=== PATIENT | female | born 1995 | race Caucasian/White ===

== ENCOUNTER 2019-05-27 14:15 | Emergency (ER) | payer OTHER, SELFPAY ==
[2019-05-27 14:26] VITALS: BP 124/85; PULSE 107; RESP 20; TEMP 38.1; O2SAT 100
--- NOTE | 2019-05-27 15:00 | ED.URI ---
HPI - URI/Sore Throat General Chief Complaint: Upper Respiratory Infection Stated Complaint: congestion/ear pain/christopher/sinus issues Source: patient and RN notes reviewed Mode of arrival: ambulatory Limitations: no limitations History of Present Illness HPI Narrative: The patient, a non-smoker/nondrinker, presents with 5d history of fever to 100.6, congestion, cough now associated with bilateral right> left ear discomfort. No wheeze, sore throat --symptoms mild worse upon awakening; unrelieved with OTC preparations like Nyquil. Related Data Allergies Allergy/AdvReac Type Severity Reaction Status Date / Time No Known Allergies Allergy Verified 01/24/19 12:52 Review of Systems Review of Systems: Narrative: General/Constitutional: No weight loss, REPORTS fever Eyes: N0: Redness,discharge Ears/Nose/Throat: No: Epistaxis,ear discharge Respiratory: Denies: Hemoptysis Gastrointestinal: No Vomiting, Bleeding-rectal Skin: No Lumps, eruption Neurologic: No Focal Weakness,Sz Hematologic: Denies: Petechiae/Purpura Psychiatric: No: Suicida ideationl All Other Systems: Reviewed and Negative PMFSH Social History Social History Smoking status: Never smoker Alcohol intake: never Comments At time of signature, agree with nursing past medical, surgical, social and family history. There is no relevant family history pertinent to the presenting complaint Exam Narrative: Exam Narrative: General Appearance: Well appearing, Well nourished EYE: PERRLA, Conjunctiva clear Ears: Auditory canal normal, TM normal Nose: Rhinorrhea, Mucousal erythema Mouth/Throat: MM moist, Uvula midline, Pharyngeal erythema Neck: Supple, No adenopathy Respiratory: No respiratory distress, Breath sounds equal, Clear to auscultation Cardiovascular: RRR, No JVD Musculoskeletal: Non tender, Normal strength Skin: Warm, Dry Neurological: A&O x3, CN II-XII intact Psychiatric: Normal mood, Normal affect Course Vital Signs Vital signs: Vital Signs Temperature 100.5 F H 05/27/19 14:26 Pulse Rate 107 H 05/27/19 14: Respiratory Rate 20 05/27/19 14: Blood Pressure 124/85 05/27/19 14:26 Pulse Oximetry 100 05/27/19 14: Temperature 100.5 F H 05/27/19 14:26 Pulse Rate 107 H 05/27/19 14:26 Respiratory Rate 20 05/27/19 14:26 Blood Pressure 124/85 05/27/19 14:26 Pulse Oximetry 100 05/27/19 14:26 Discharge Plan Discharge Clinical Impression: Bilateral otitis media Qualifiers: Otitis media type: suppurative Chronicity: acute Recurrence: non-recurrent Spontaneous tympanic membrane rupture: without spontaneous rupture Qualified Code(s): H66.003 - Acute suppurative otitis media without spontaneous rupture of ear drum, bilateral Fever Qualifiers: Fever type: unspecified Qualified Code(s): R50.9 - Fever, unspecified Patient Disposition: Home, Self-Care Condition: Stable Instructions: Antibiotic Form, Ear Infection (ED) Prescriptions: New amoxicillin-pot clavulanate [Augmentin] 500-125 mg tablet 1 tablet PO TID Qty: 30 RF: 0 codeine-guaifenesin 10-100 mg/5 mL liquid 7.5 ml PO Q6H PRN (Reason: cough) Qty: 118 RF: 0 benzonatate [Tessalon Perles] 100 mg capsule 100 mg PO TID Qty: 20 RF: 1 Interventions: Discharge Disposition Last Done: 05/27/19 14:42 Follow-up/Referrals: Abran Goff MD [Primary Care Provider] - Stand Alone Forms: Work/School Release IP Discharge Date/Time: 05/27/19 14:42
== END 2019-05-27 14:42 | disposition home or self-care (01) ==
PROVIDERS: Emergency Provider Emergency Medicine; PCP Family Medicine
DX: H66.003 Acute suppurative otitis media without spontaneous rupture of ear drum, bilateral (principal); R50.9 Fever, unspecified
CPT/HCPCS: 99213; G0463

== ENCOUNTER 2021-01-18 09:53 | Outpatient (CLI) | payer BC, SELFPAY ==
[2021-01-18 11:44] LABS: Hematocrit 42.8 % (37.0-47.0); Hemoglobin 14.5 g/dL (12.0-15.0); Mean Corpuscular HGB Conc 33.9 g/dl (32-36); Mean Corpuscular Hemoglobin 30.1 pg (26-34); Mean Platelet Volume 10.1 fl (7.4-10.4); Platelet Count Result 266 k/mm3 (150-375); Red Blood Count 4.81 M/mm3 (4.2-5.4); Red Cell Distribution Width 12.5 % (11.5-14.5); White Blood Count 8.1 K/mm3 (4.5-10.0)
[2021-01-18 12:19] LABS: Glucose 1 Hour PP 50gm Dose 140 mg/dL
[2021-01-18 12:52] LABS: Hepatitis B Surface Antigen Negative (Negative); Rubella IgG Antibody 36.3 IU/ML
[2021-01-18 13:03] LABS: HIV 1/2 Ab P24 Ag Result Negative (Negative)
[2021-01-19 09:34] LABS: Rapid Plasma Reagin Non-Reactive (NonReactive)
[2021-01-21 18:46] LABS: CMV IgG Antibody >10.00 U/mL (<0.60)
== END 2021-01-18 09:54 | disposition home or self-care (01) ==
LOC: ANHLAB 09:58
PROVIDERS: PCP Family Medicine; Visit Provider Obstetrics & Gynecology
DX: N92.6 Irregular menstruation, unspecified (principal)
CPT/HCPCS: 36415; 82947; 84702; 85027; 86592; 86644; 86703; 86747; 86762; 86787; 86850; 86900; 86901; 87086; 87088; 87340; G0432

== ENCOUNTER 2021-02-21 07:10 | Outpatient (CLI) | payer BC, SELFPAY ==
[2021-02-21 08:07] LABS: Glucose Fasting Gestational 97 mg/dL (>/=95)
[2021-02-21 09:46] LABS: Glucose 1 Hour Gest 158 mg/dL (>/=180)
[2021-02-21 10:41] LABS: Glucose 2 Hour Gest 117 mg/dL (>/= 155)
[2021-02-21 11:50] LABS: Glucose 3 Hour Gest 100 mg/dL (>/=140)
== END 2021-02-21 07:11 | disposition home or self-care (01) ==
PROVIDERS: PCP Family Medicine; Visit Provider Obstetrics & Gynecology
DX: R73.09 Other abnormal glucose (principal)
CPT/HCPCS: 36415; 82951; 82952

== ENCOUNTER 2021-07-01 07:36 | Outpatient (CLI) | payer BC, SELFPAY ==
[2021-07-01 08:51] LABS: Basophils Percent Auto 0.3 % (0.2-1.2); Eosinophils Absolute Auto 0.1 K/mm3 (0-0.3); Eosinophils Percent Auto 0.5 % (0-4.4); Hematocrit 40.6 % (37.0-47.0); Hemoglobin 12.9 g/dL (12.0-15.0); Immature Granulocyte Absolute 0.13 K/mm3 (0.00-0.031); Immature Granulocyte Percent A 1.2 % (0-0.5); Lymphocytes Absolute Auto 2.23 K/mm3 (0.9-3.2); Lymphocytes Percent Auto 20.9 % (18.3-44.2); Mean Corpuscular HGB Conc 31.8 g/dl (32-36); Mean Corpuscular Hemoglobin 28.4 pg (26-34); Mean Corpuscular Volume 89.2 fl (80-100); Mean Platelet Volume 11.4 fl (7.4-10.4); Monocytes Absolute Auto 0.4 K/mm3 (0.1-0.6); Monocytes Percent Auto 3.7 % (2.6-8.5); Neutrophils Absolute Auto 7.8 K/mm3 (1.3-6.7); Neutrophils Percent Auto 73.4 % (45.5-73.1); Platelet Count Result 181 k/mm3 (150-375); Red Blood Count 4.55 M/mm3 (4.2-5.4); White Blood Count 10.7 K/mm3 (4.5-10.0)
[2021-07-01 09:02] LABS: Glucose 1 Hour PP 50gm Dose 163 mg/dL
[2021-07-01 09:41] LABS: HIV 1/2 Ab P24 Ag Result Negative (Negative)
== END 2021-07-01 07:37 | disposition home or self-care (01) ==
LOC: ANHLAB 07:37
PROVIDERS: PCP Family Medicine; Visit Provider Obstetrics & Gynecology
DX: Z34.90 Encounter for supervision of normal pregnancy, unspecified, unspecified trimester (principal); Z3A.00 Weeks of gestation of pregnancy not specified
CPT/HCPCS: 36415; 82947; 85025; 86703; G0432

== ENCOUNTER 2021-07-11 07:16 | Outpatient (CLI) | payer BC, SELFPAY ==
[2021-07-11 07:50] LABS: Glucose Fasting Gestational 89 mg/dL (>/=95)
[2021-07-11 09:34] LABS: Glucose 1 Hour Gest 150 mg/dL (>/=180)
[2021-07-11 10:59] LABS: Glucose 2 Hour Gest 161 mg/dL (>/= 155)
[2021-07-11 11:07] LABS: Glucose 3 Hour Gest 121 mg/dL (>/=140)
== END 2021-07-11 07:17 | disposition home or self-care (01) ==
LOC: ANHLAB 07:17
PROVIDERS: PCP Family Medicine; Visit Provider Obstetrics & Gynecology
DX: Z34.93 Encounter for supervision of normal pregnancy, unspecified, third trimester (principal); Z3A.00 Weeks of gestation of pregnancy not specified
CPT/HCPCS: 36415; 82951; 82952

== ENCOUNTER 2021-09-06 04:46 | Inpatient (IN) | payer BC, SELFPAY ==
[2021-09-06] VITALS (38 sets, daily range): BP systolic 101–169; BP diastolic 66–137; PULSE 80–176; RESP 16–20; TEMP 36.4–37.2; O2SAT 96–100; BMI 44.9
--- NOTE | 2021-09-06 04:46 | LDADM ---
This patient, Anabella Cantor, was admitted to Labor/Delivery/Recovery 107 on 09/06/21 at 04:46. Plans for labor, pain management and were discussed with patient. Patient/family oriented to hospital policies and general routines including ID bracelet, bed and alarms, visiting hours, pain management, procedures, bathroom and other care routines, personal items, smoking policy, room service/diet and guest tray routines, security routines, and visiting hours. Patient/Family are encouraged to report perceived risks to care and to ask questions if they do not understand what they are told or what they should do. See OBIX for further documentation.
[2021-09-06] MEDS: LACTATED RINGERS 1,000 ML 125 ML IV CONT ×2 (05:05→05:33)
[2021-09-06 05:06] LABS: Basophils Percent Auto 0.3 % (0.2-1.2); Eosinophils Absolute Auto 0.1 K/mm3 (0-0.3); Eosinophils Percent Auto 0.7 % (0-4.4); Hematocrit 39.2 % (37.0-47.0); Hemoglobin 12.8 g/dL (12.0-15.0); Immature Granulocyte Absolute 0.12 K/mm3 (0.00-0.031); Immature Granulocyte Percent A 0.8 % (0-0.5); Lymphocytes Absolute Auto 4.48 K/mm3 (0.9-3.2); Lymphocytes Percent Auto 31.5 % (18.3-44.2); Mean Corpuscular HGB Conc 32.7 g/dl (32-36); Mean Corpuscular Hemoglobin 27.8 pg (26-34); Mean Corpuscular Volume 85.2 fl (80-100); Mean Platelet Volume 11.5 fl (7.4-10.4); Monocytes Absolute Auto 0.7 K/mm3 (0.1-0.6); Monocytes Percent Auto 4.6 % (2.6-8.5); Neutrophils Absolute Auto 8.8 K/mm3 (1.3-6.7); Neutrophils Percent Auto 62.1 % (45.5-73.1); Platelet Count Result 176 k/mm3 (150-375); Red Cell Distribution Width 15.3 % (11.5-14.5); White Blood Count 14.2 K/mm3 (4.5-10.0)
--- NOTE | 2021-09-06 05:22 | WPDANESEPP ---
Anes - Eval Pre Procedure Procedure: labor epidural Date/Time: 09/06/21 05:22 Surgeon: ross Pre Op Diagnosis: Labor Patient Data Age: 25 Gender: F Height: 1.6 m Weight: 115 kg Last Vital Signs Temp 36.9 C 09/06/21 05:16 Pulse 109 H 09/06/21 05:19 BP 111/69 09/06/21 05:19 O2 Del Method Room Air 09/06/21 05:07 Allergies Allergy/AdvReac Type Severity Reaction Status Date / Time No Known Allergies Allergy Verified 09/05/21 14:29 Home Medications Medication Instructions Recorded Confirmed Type vitamins-iron fumarate 65 1 tablet PO DAILY 05/05/21 09/05/21 History mg iron-folic acid 1 mg tablet Al hyd-Mg tr-alg ac-sod bicarb 80 1 tablet PO DAILY 06/30/21 09/05/21 History mg-14.2 mg chewable tablet (Gaviscon) Laboratory Tests 09/06/21 09/06/21 05:01 05:01 WBC 14.2 K/mm3 H K/mm3 (4.5-10.0) RBC 4.60 M/mm3 M/mm3 (4.2-5.4) Hgb 12.8 g/dL g/dL (12.0-15.0) Hct 39.2 % % (37.0-47.0) MCV 85.2 fl fl (80-100) MCH 27.8 pg pg (26-34) MCHC 32.7 g/dl g/dl (32-36) RDW 15.3 % H % (11.5-14.5) Plt Count 176 k/mm3 k/mm3 (150-375) MPV 11.5 fl H fl (7.4-10.4) Immature Gran % (Auto) 0.8 % H % (0-0.5) Neut % (Auto) 62.1 % % (45.5-73.1) Lymph % (Auto) 31.5 % % (18.3-44.2) [place] % (Auto) 4.6 % % (2.6-8.5) Eos % (Auto) 0.7 % % (0-4.4) Baso % (Auto) 0.3 % % (0.2-1.2) Lymph # (Auto) 4.48 K/mm3 H K/mm3 (0.9-3.2) [place] # (Auto) 0.7 K/mm3 H K/mm3 (0.1-0.6) Eos # (Auto) 0.1 K/mm3 K/mm3 (0-0.3) Baso # (Auto) 0.0 K/mm3 K/mm3 (0.0-0.1) Abs Immat Gran (auto) 0.12 K/mm3 H K/mm3 (0.00-0.031) Absolute Neuts (auto) 8.8 K/mm3 H K/mm3 (1.3-6.7) Absolute Nucleated RBC 0.0 K/mm3 K/mm3 (0.0-0.012) Nucleated RBC % 0.0 % % (0.0-0.2) RPR Pending Patient hx anesthesia problems: none Family hx anesthesia problems: none Results Review: All pre-operative results and documents have been reviewed as part of the pre-operative evaluation. [facility] Surgical History Surgical History History of gynecological procedure (06/09/20) mirena iud removal History of gynecological procedure (03/19/16) mirena iud insertion Family History Family History Grandparent Family history of elevated blood lipids Family history of alcoholism Family history of lung cancer Social History Social History Smoking status: Former smoker Alcohol intake: never Substance use: never Additional living arrangements comments: spouse Gender identity (if verbalized by the patient): Female Sexual Orientation (if Verbalized by the Patient): Straight or Heterosexual Spiritual care concerns: No Exam Day of Procedure 09/06/21 05:22
[2021-09-06] MEDS: OXYTOCIN 30 UNITS/NS 500 ML 30 UNITS/500 ML BAG 999 UNITS IV CONT (06:17)
[2021-09-06] MEDS: LIDOCAINE HCL 1% LOCAL INJ 10 ML VIAL ×2 (06:22)
--- NOTE | 2021-09-06 06:37 | WPDHPUPDATE1 ---
History and Physical Update Update Date/Time: 09/06/21 06:37 History and Physical has been reviewed, including an updated exam of the patient. There are NO changes in the patient's condition. Risks, benefits, and alternatives have been discussed and questions answered. Patient agrees to proceed with procedure.
--- NOTE | 2021-09-06 06:37 | WPDOBADMIT ---
Obstetrics - Admit Note Admission Note: record reviewed. No pertinent additions to the history and/or any subsequent changes in the physical findings that are not consistent with the expected course of the were found. Additions to the history and/or subsequent changes in the physical findings follow. None.
--- NOTE | 2021-09-06 06:38 | PM.OBPRVD ---
OB - Delivery Note Procedure Intrapartal Events: Other ( Meconium-stained fluid) Induction method: None Delivery monitor: External FHT and External Uterine Route of delivery: Episiotomy description: None Laceration Description: Perineal - 2nd Degree Delivery repair: chromic Specimen: Yes Quantitative Blood Loss (ml): 200 Anesthesia type: Epidural ( local for laceration repair) Disposition: Floor Complications: none Narrative: patient prepped in usual manner for this procedure. Maternal expulsive efforts readily delivered vertex with a nuchal cord reduced at delivery. Rest of baby was delivered cord clamped cut placenta delivered spontaneously. Cervix vagina vulva were inspected with second-degree laceration. Local anesthesia to the area due to discomfort. 2-0 chromic was used to approximate the vaginal tissue in a running interlocking manner and then the deep tissue was approximated in subcuticular on the perineum. This point the procedure was considered terminated with immediate postoperative condition mother baby of good. Baby Weeks of gestation at delivery: 40 gender: Male Weight (pounds): 8 Weight (ounces): 5 presentation: vertex Placenta delivery description: Spontaneous score one minute: 8 score five minutes: 9 AMG Delivery Billing Delivery Delivery: Delivery Charge
[2021-09-06] MEDS: OXYTOCIN 30 UNITS/NS 500 ML 30 UNITS/500 ML BAG 125 UNITS IV CONT (06:48)
--- NOTE | 2021-09-06 09:06 | OBPPTRN ---
Patient transferred to post room #283 via wheelchair. Support person present. Oriented to unit, room, information board, rooming in, admission packet and security measures. Patient verbalizes understanding.
[2021-09-06] MEDS: IBUPROFEN 600 MG TABLET PO ×2 (09:21→22:56)
[2021-09-06] MEDS: MULTIVIT/MIN/PREN/FOL AC/IRON TABLET 1 TAB PO (09:21)
[2021-09-06] MEDS: DOCUSATE SODIUM 100 MG CAPSULE PO (09:21)
--- NOTE | 2021-09-06 15:18 | PC.NURSE ---
1507 - Mother verbalizes she is able to independently latch with appropriate positioning/alignment. She denies any nipple discomfort and is responsively . Infant is currently meeting outcomes for weight, output, jaundice and feeding frequencies of 8-12 times in 24 hours. Mother declines any additional assistance/education at this time. Mother is encouraged to call for assistance if her doesn?t latch or there is discomfort with latching. Mother voiced understanding of information shared and mom and baby guide reviewed for additional resource information .
[2021-09-06 17:16] LABS: Rapid Plasma Reagin Non-Reactive (NonReactive)
[2021-09-06] MEDS: ACETAMINOPHEN 325 MG TABLET 650 MG PO (22:57)
[2021-09-07] VITALS: BP 121/77; PULSE 101; RESP 18; TEMP 36.8
[2021-09-07 04:00] VITALS: BP 122/84; PULSE 84; RESP 18; TEMP 36.7
[2021-09-07 05:03] LABS: Hematocrit 35.4 % (37.0-47.0); Hemoglobin 11.6 g/dL (12.0-15.0)
--- NOTE | 2021-09-07 07:29 | WPDANLDPN2 ---
Anes-Prog Note L&D Date/Time: 09/07/21 07:29 Comfortable throughout: labor and delivery Neuraxial method: epidural Epidural/Spinal procedure site: clean & non-tender Neuro status: Neuro function grossly intact. Cardiovascular status: normal Respiratory status: normal Airway patency: baseline Mental status: baseline Post-Op hydration status: normal Vital Signs: Last Vital Signs Temp 36.7 C 09/07/21 04:00 Pulse 84 09/07/21 04:00 Resp 18 09/07/21 04:00 BP 122/84 09/07/21 04:00 Pulse Ox 98 09/06/21 16:00 O2 Del Method Room Air 09/07/21 04:00 Pain score (VAS): 03/28 I/O: Intake & Output 09/06/21 09/06/21 09/07/21 15:59 23:59 07:59 Intake Total 340 240 Output Total 100 Balance 240 240 Post-procedural complaints: none Patient feedback: Patient satisfied with anesthetic care.
--- NOTE | 2021-09-07 08:19 | PC.NURSE ---
[id number] Consulted with patient to assess needs related to . Mother led conversation with her experience with feeding baby so far and states last night she had difficulty latching to the right breast. Mother works well with her with encouragement. Reviewed working with , breast, nipples and how to protect the nipples with an optimal deep latch, good positioning, and good hand washing. Encouraged understanding the benefits of skin to skin, responding to feeding cues, frequencies of feeding 8-12 times in 24 hours (approximately 2-3 hours), duration of feedings, milk production, intake/output feeding sheet and signs of adequate intake encouraging swallowing at the breast. Reviewed positioning and alignment, supporting breast, off-centered (asymmetrical latch) and leading with the chin with big open wide gape. Infant latched optimally to the right breast in football position after demonstrating bringing to nipple level well supported. Education given to mother of how to visualize suck/swallow ratios and drinking at the breast. was able to maintain latch without discomfort to mother. Nipple care reviewed with optimal latch and good positioning, comfort, healing with warm, wet washcloth to rinse breast, then leave open to air-dry, colostrum may be left on nipples to dry but have clean hands when touching the nipple/breast as needed. Resources used to facilitate learning were used from the mom and baby guide. Mother stated she had no difficulty latching to the left breast. Mother is feeding appropriately for growth of infant and understands stimulating to eat if needed. has had adequate feedings in the last 24 hours meets the outcomes for weight, output and jaundice at this time. Mother states she is confident to continue effectively her infant at home or when to call for assistance and denies any additional assistance or education at this time. Reinforced understanding of milk production, transition of milk, signs of adequate intake, prevention/relief of engorgement, responsive after visualizing feeding cues, the different methods of stimulating to breastfeed 2-3 hours after the start of the last feeding, community resources, medication information reviewed per [employer] and when to call a provider using the resource of the mom and baby guide/[facility] website. Mother voiced understanding of the education shared. Reported to the primary RN.
[2021-09-07 08:30] VITALS: BP 118/76; PULSE 85; RESP 16; TEMP 36.4; O2SAT 99
[2021-09-07] MEDS: IBUPROFEN 600 MG TABLET PO (08:39)
[2021-09-07] MEDS: DOCUSATE SODIUM 100 MG CAPSULE PO (08:39)
[2021-09-07] MEDS: BENZOCAINE 20% AER SPR (*SP) 56 GM CAN 1 SPRAY TOPICAL (08:39)
[2021-09-07] MEDS: WITCH HAZEL 40 PADS 1 PAD TOPICAL (08:39)
[2021-09-07] MEDS: MULTIVIT/MIN/PREN/FOL AC/IRON TABLET 1 TAB PO (08:39)
--- NOTE | 2021-09-07 12:37 | PM.OBDSVD ---
DS: Admitting Diagnosis Discharge Date 09/07/2021 Admitting Diagnosis OB - DS: Summary OB Procedures : None OB Procedures Intrapartum: Spontaneous Vag Delivery OB Procedures: : None Time Spent with Patient Time attestation: Total time spent providing and/or coordinating discharge services: DS: Data Data Completed and Pending Pending studies at discharge: Pending at discharge 09/06/21 06:17 Surgical [PTH] Routine Labs on day of discharge: Labs from last 24 hours 09/07/21 09/06/21 04:33 05:01 Hgb 11.6 L Hct 35.4 L RPR Non-reactive Discharge Plan Discharge Discharging Clinician: Qasim Roldan Patient Disposition: Home, Self-Care Activity: as tolerated Diet: as tolerated Patient Instructions: Antibiotic Form Stand Alone Forms: General Discharge Information Follow-up/Referrals: Qasim Roldan MD [Physician] - 3 Weeks Discharge Medications: New ibuprofen 600 mg Tablet 600 mg PO Q6H PRN (Reason: Cramping) Qty: 30 0RF Continued Gaviscon 80-14.2 mg tablet,chewable 1 tablet PO DAILY vit-iron fum-folic ac 65 mg iron- 1 mg tablet 1 tablet PO DAILY Date of admission: 09/06/21 04:46 Primary Care Provider: Abran Goff Admitting Provider: Qasim Roldan Attending physician on admission: Qasim Roldan Condition: Stable
[2021-09-09 11:34] VITALS: BP 111/76; PULSE 108; RESP 20; TEMP 37; O2SAT 99
== END 2021-09-07 15:19 | disposition home or self-care (01) | DRG 807 ==
LOC: ANHLDR 05:10 → ANHOB2 09:10
PROVIDERS: Admitting Provider Obstetrics & Gynecology; PCP Family Medicine; Visit Provider Obstetrics & Gynecology
DX: O62.3 Precipitate labor (principal); Z37.0 Single live birth; Z3A.40 40 weeks gestation of pregnancy; O70.1 Second degree perineal laceration during delivery; O69.81X0 Labor and delivery complicated by cord around neck, without compression, not applicable or unspecified; O77.0 Labor and delivery complicated by meconium in amniotic fluid
CPT/HCPCS: 36415; 85014; 85018; 85025; 86592; 86850; 86900; 86901; 88307; A9270; J2590; J2795; J7120

== ENCOUNTER 2023-02-02 13:06 | Emergency (ER) | payer BC, SELFPAY ==
--- NOTE | ~2023-02-02 | XR_ITS ---
EXAMINATION: XR chest 2V DATE: 02/02/2023 13:43 INDICATION: Cough. Chest congestion. TECHNIQUE: Frontal and lateral views of the chest were obtained. COMPARISON: Chest 2 views 10/14/2018 FINDINGS: There is no pneumonia, pleural effusion, or pneumothorax. The heart size is normal. IMPRESSION: 1. No acute cardiopulmonary disease. Reviewed, dictated and finalized at location A. ELING CRANE OPERATOR
[2023-02-02 13:15] VITALS: BP 130/84; PULSE 85; RESP 18; TEMP 36.6; O2SAT 99
--- NOTE | 2023-02-02 13:30 | ED.URI ---
HPI - URI/Sore Throat General Chief Complaint: Upper Respiratory Infection Stated Complaint: Cough Time Seen by Provider: 02/02/23 13:30 Source: patient Mode of arrival: ambulatory Limitations: no limitations History of Present Illness HPI Narrative: 27 yo F presents with c/o cough for 2 wks. Began having SOB when going up flight of stairs and hearing crackles to lungs 3 days ago. Afebrile. Reports entire family got sick 2 wks ago and most symptoms resolved except for cough. All systems reviewed and negative except as noted above. Related Data Allergies Allergy/AdvReac Type Severity Reaction Status Date / Time No Known Allergies Allergy Verified 02/02/23 13:21 Review of Systems Review of Systems: CONSTITUTIONAL: Denies fever, chills, or sweats. EYES: Denies visual changes, redness, or discharge. ENT: Denies rhinorrhea, congestion, sore throat, or otalgia. CARDIOVASCULAR: Denies chest pain, palpitations, or edema. RESPIRATORY: Reports cough and dyspnea with exertion. GASTROINTESTINAL: Denies abdominal pain, nausea, vomiting, or diarrhea. GENITOURINARY: Denies dysuria or hematuria. SKIN: Denies rash or itching. MUSCULOSKELETAL: Denies back pain, joint pain, or myalgia. NEUROLOGIC: Denies headache, numbness, or weakness. PSYCHIATRIC: Denies anxiety or depression. All other systems reviewed are negative, except as documented in HPI. 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 [place] Surgical History Surgical History History of gynecological procedure (06/09/20) mirena iud removal History of gynecological procedure (03/19/16) mirena iud insertion Family History Family History Grandparent Family history of elevated blood lipids Family history of alcoholism Family history of lung cancer paternal grandmother Malignant neoplasm of skin maternal grandfather Other Breast cancer maternal aunt Social History Social History (Updated 12/27/22 @ 10:14 by LAWANDA Taylor) Smoking status: Former smoker Tobacco type: cigarettes Second hand tobacco smoke exposure: No Smoking end date: 12/18/15 Alcohol intake: current Alcohol use details: 2 a month Substance use: former Substance use type: does not use Other substance usage details: edibles before Living arrangements: other Additional living arrangements comments: spouse 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 There is no relevant family history pertinent to the presenting complaint. Exam Narrative: GENERAL: This is a well-nourished, well-developed patient, in no apparent distress. HEAD: normocephalic, atraumatic. EYES: PERRL. Sclera clear/white. Vision is grossly intact. EARS: External ears normal, auditory canals clear and without drainage, TMs normal without perforation. Hearing grossly intact. NOSE: External nose normal with clear nasal drainage, nares without redness, no rhinorrhea. THROAT: Mucous membranes moist, posterior pharynx clear. NECK: Neck supple, non-tender without lymphadenopathy, masses or thyromegaly. CARDIOVASCULAR: Regular rate and rhythm without murmurs, gallops, or rubs. RESPIRATORY: crackles noted to right lung wilhelm. Breath sounds equal bilaterally. No wheezes, rales, or rhonchi. SKIN: warm, Dry, intact with no suspicious lesions or rash, good texture and turgor. NEURO: awake, alert, and oriented to person, place and time. The
== END 2023-02-02 14:00 | disposition home or self-care (01) ==
PROVIDERS: Emergency Provider Nurse Practitioner Family; PCP Family Medicine
DX: J20.8 Acute bronchitis due to other specified organisms (principal); Z87.891 Personal history of nicotine dependence
CPT/HCPCS: 71046; 99213; G0463

== ENCOUNTER 2023-10-15 14:03 | Outpatient (CLI) | payer OTHER, SELFPAY ==
[2023-10-15 14:57] LABS: Anion Gap 10 mmol/L (4-12); Blood Urea Nitrogen 11 mg/dL (7-17); Calcium 9.5 mg/dL (8.4-10.2); Carbon Dioxide 24 mmol/L (22-30); Chloride 102 mmol/L (98-107); Estimated Glomerular Filt Rate > 60; Glucose 85 mg/dL (65-110); Potassium 4.2 mmol/L (3.4-5.0); Sodium 136 mmol/L (137-145)
== END 2023-10-15 14:04 | disposition home or self-care (01) ==
LOC: ANHLAB 14:04
PROVIDERS: PCP Family Medicine; Visit Provider Physician Assistant Medical
DX: R63.5 Abnormal weight gain (principal)
CPT/HCPCS: 36415; 80048; 84443

== ENCOUNTER 2024-09-23 11:42 | Outpatient (CLI) | payer OTHER, SELFPAY ==
--- NOTE | ~2024-09-23 | XR_ITS ---
3 VIEWS LUMBAR SPINE Ordering provider: Rigo Myers, [place] History: . low back pain . Comparison: None. FINDINGS: VERTEBRAL BODIES:Spondylolisthesis with spondylolysis at the level of L4-L5. No spondylolisthesis is slightly increased on the flexion position. Spondylolysis seen at the level of L3-4. No visible fracture. DISK SPACES: Narrowing of the disc L4-L5 and L5-S1. SOFT TISSUES: Normal. IMPRESSION: No acute osseous abnormality lumbar spine. Spondylolysis at the level of L3-L4 and L4-L5. Spondylolisthesis at the level of L4-L5 which is slightly increased with flexion movement Reviewed, dictated and finalized at location A. IMPRESSION: No acute osseous abnormality lumbar spine. Spondylolysis at the level of L3-L4 and L4-L5. Spondylolisthesis at the level of L4-L5 which is slightly increased with flexio n movement
== END 2024-09-23 11:43 | disposition home or self-care (01) ==
PROVIDERS: PCP Chiropractor; Visit Provider Chiropractor
DX: M47.896 Other spondylosis, lumbar region (principal)
CPT/HCPCS: 72114

== ENCOUNTER 2024-11-25 16:50 | Outpatient (CLI) | payer OTHER, SELFPAY ==
--- OUTSIDE RECORDS SUMMARY | 2024-11-24 10:00 | XMS_ITS | Continuity of Care Document ---
Author Organization [facility] Address [address] [place] [address] [place] [phone] Phone Care Team Providers Care Tariff Counsel Name Role Phone Gina PT, SIMRANT, Yoshi Unavailable Evonne vailable Procedures Procedure Date Therapeutic Activities Neuromuscular Re-Ed Therapeutic Exercise Dry Needling 1-2 muscles Therapeutic Activities Neuromuscular Re-Ed Therapeutic Exercise Dry Needling 1-2 muscles Therapeutic Activities Neuromuscular Re-Ed Therapeutic Exercise Therapeutic Activities Neuromuscular Re-Ed Therapeutic Exercise Therapeutic Activities Neuromuscular Re-Ed Therapeutic Exercise Therapeutic Activities Neuromuscular Re-Ed Therapeutic Exercise Therapeutic Activities Neuromuscular Re-Ed Therapeutic Exercise Therapeutic Activities Neuromuscular Re-Ed Therapeutic Exercise PT Evaluation Moderate Complexity Therapeutic Activities Neuromuscular Re-Ed Therapeutic Exercise Manual Therapy Hot or Cold Pack Advance Directives Directive Yes / No Effective Date File Name No Information Encounters Encounter Description Practice Location Reason(s) For Visit Diagnoses Date Provider Providers Copied on Encounter [facility], [address], [place], [place], [id number], [place] tel:[phone] [facility] No Information Baldemar Belle. [address] [facility], [address], [place], [place], [facility], [place]. tel: [phone] Referring Provider: Abran Goff, [address] [place], [address]. tel:[phone] [place] [address], [address] [facility], [place], [place], [id number], [place] tel:[phone] [facility] No Information Renaldo Andrew. . Referring Provider: Abran Goff, [address] [place], [address]. tel:[phone] [place] [address] [address] [address], [place], [place], [id number], [place] tel:[phone] [facility] No Information Renaldo Andrew. . Referring Provider: Abran Goff, [address] [place], [address]. tel:[phone] [place], [place] [id number] [address] [address], [place], [place], [id number], [place] tel:[phone] [facility] No Information Marina Lawler. . Referring Provider: Abran Goff, [address] [place], [address]. tel:[phone] [place] [address], [address] [facility] [facility], [place], [place], [id number], [place] tel:[phone] [place] No Information Marina Warrenberly. . Referring Provider: Abran Goff, [address] [place], [address]. tel:[phone] [place], [place] [id number] [address] [facility] [address], [place], [place], [id number], [place] tel:[phone] [place] No Information Lurtz Nuris. . Referring Provider: Abran Goff, [place], [address]. tel:[phone], [id number], tel:[phone] [place] No Information Lurtz Nuris. . Referring Provider: Abran Goff, [address] [place], [address]. tel:[phone], [id number], tel:[phone] [facility] No Information Lurtz Nuris. . Referring Provider: [place], [address]. tel:[phone], [id number], tel:[phone] [facility] No Information Lurtz Nuris. . Referring Provider: Abran Goff, [place], [address]. tel:[phone] [address] [place] [address], [id number], tel:[phone] [facility] No Information Baldemar Belle. [address] [facility], [address], [place], [address], [place]. tel: [phone] Referring Provider: [place], [address]. tel:[phone] Family History Family Member Type Diagnosis Age At Onset No Information Payers Payer name Insurance type Covered constitution party ID Laura carrizales(s) [facility] [id number] Social History Type Description Quantity Date Captured Comments Sex Female Smoking Status No Information Chief Complaint And Reason For Visit No Information Reason For Referral Reason For Referral No Information Plan Of Treatment Date Type Action Status Appointment Anabella Cantor Copay $20 [place] JACOBS History Of Present Illness Encounter Date Complaint History Of Prese nt Illness No Information Functional Status Date Functional Assessmen t No Information Instructions Date Instruction Additional Infor mation No Information Assessments Type Assessment Date No Information Patient Care Teams Name Effective Dates (start - stop) Status Members No Information
[2024-11-25 17:52] LABS: Hematocrit 42.7 % (37.0-47.0); Hemoglobin 14.3 g/dL (12.0-15.0); Immature Granulocyte Percent A 0.2 % (0-0.5); Lymphocytes Absolute Auto 3.87 K/mm3 (0.9-3.2); Mean Corpuscular HGB Conc 33.5 g/dl (32-36); Mean Corpuscular Hemoglobin 28.9 pg (26-34); Mean Corpuscular Volume 86.4 fl (80-100); Nucleated Red Blood Cells Absolute Auto 0.000 K/mm3 (0.0-0.012); Nucleated Red Blood Cells Perc 0.0 % (0.0-0.2); Platelet Count Result 320 k/mm3 (150-375); Red Blood Count 4.94 M/mm3 (4.2-5.4); White Blood Count 8.1 K/mm3 (4.5-10.0)
[2024-11-25 18:08] LABS: Alanine Aminotransferase 25 U/L (6-35); Albumin Level 4.4 g/dL (3.5-5.1); Alkaline Phosphatase 43 U/L (38-126); Anion Gap 9 mmol/L (4-12); Aspartate Amino Transferase 26 U/L (14-36); Bilirubin,Total 0.3 mg/dL (0.2-1.3); Blood Urea Nitrogen 14 mg/dL (7-17); Calcium 9.5 mg/dL (8.4-10.2); Carbon Dioxide 25 mmol/L (22-30); Chloride 102 mmol/L (98-107); Cholesterol 249 mg/dL (0-200); Estimated Glomerular Filt Rate > 60; Glucose 83 mg/dL (65-110); HDL Direct 51 mg/dL; Potassium 4.3 mmol/L (3.4-5.0); Sodium 136 mmol/L (137-145); Total Protein 8.1 g/dL (6.3-8.2); Triglycerides 209 mg/dL (<150)
[2024-11-25 18:42] LABS: Thyroid Stimulating Hormone 1.160 uIU/mL (0.465-4.680)
== END 2024-11-25 16:51 | disposition home or self-care (01) ==
LOC: ANHLAB 16:53
PROVIDERS: PCP Family Medicine; Visit Provider Nurse Practitioner Adult Health
DX: R63.4 Abnormal weight loss (principal); Z13.220 Encounter for screening for lipoid disorders; Z13.29 Encounter for screening for other suspected endocrine disorder
CPT/HCPCS: 36415; 80053; 80061; 84443; 85025

== ENCOUNTER 2025-01-12 06:32 | Day surgery (SDC) | payer OTHER, SELFPAY ==
[2025-01-06 11:12] VITALS: BMI 30.2
--- NOTE | ~2025-01-12 | XR_ITS ---
XR fluoroscopy no charge Indication:left L4-5 transforaminal epidural steroid injection TECHNIQUE: Fluoroscopy used during left L4-5 transforaminal epidural steroid injection performed by [Lb Martini MD] on 01/12/2025. 33 seconds of fluoroscopy time with 41 fluoroscopic images captured. FINDINGS: Correlate with procedure note. IMPRESSION: Fluoroscopy used during left L4-5 transforaminal epidural steroid injection. Reviewed, dictated and finalized at location B. IMPRESSION: Fluoroscopy used during left L4-5 transforaminal epidural steroid i njection.
[2025-01-12 06:48] VITALS: BP 111/70; PULSE 89; RESP 16; TEMP 36.9; O2SAT 99
--- NOTE | 2025-01-12 07:47 | P.OP_ITS ---
Procedure Note - Detailed Date of Procedure 01/12/25 Pre-op Diagnosis Lumbar Radiculopathy Post-op Diagnosis Same Procedure Performed Left Lumbar Transforaminal Epidural Steroid Injection under Fluoroscopic Guidance and with Contrast Control at L4-5. Surgeon Lb Martini MD Anesthesia Local Description of Procedure INFORMED CONSENT: Risks, benefits and alternatives to the procedure were discussed in detail with the patient who expressed explicit understanding and consent to proceed. Patient was informed verbally and in written form regarding the risks associated with the procedure including the low risk of serious infection, bleeding/bruising, allergic reaction, nerve or organ injury, par alysis, procedural site pain or discomfort, worsening pain and/or mobility, failure to treat and/or disfigurement. The patient expressed explicit understanding and consent to proceed. All materials required for the procedure were available prior to procedure start. Site and side was marked prior to procedure and confirmed in the presence of the patient. PROCEDURE IN DETAIL: The patient was brought to the procedural suite and placed in the prone position. Patient was made comfortable with use of pillows under the head/chest, hips and ankles. Skin overlying the injection site was prepared broadly with ChloraPrep applicator and draped in a sterile manner. Aseptic technique was employed throughout. The endplates of the vertebral body at the site of interest were aligned in the AP view. Ipsilateral oblique angulation was utilized to better visualize the neuroforamen of interest. Local anesthesia was established by infiltration with approximately 5 mL of 0.5% PF lidocaine via a 1-1/2 inch 27-gauge needle. A 22-gauge 5.0 inch Arnaud (pencil point) spinal needle was advanced until the needle approached the 6 o'clock position on the pedicle just superior to the exiting nerve root. on the left at L4-5. Lateral view was utilized to confirm appropriate position of the needle tip within the superior and posterior portion of the respective foramen. In an AP view, 1 mL of Omnipaque 300 contrast medium was injected after negative aspiration for CSF, blood or other bodily fluid, showing appropriate neurogram without evidence of intravascular or intrathecal spread of contrast. Digital subtraction imaging was used with an additional 1ml of the same contrast medium to confirm absence of intravascular contrast spread. A 1mL solution containing 10 mg of dexamethasone was injected after negative repeat aspiration. Appropriate spread of the injectate was confirmed with washout of previously injected contrast. No parasthesias were elicited. Needle was removed completely intact without difficulty. Images were saved and documented in the patient chart. Patient's skin was cleaned and sterile bandage applied. The patient tolerated the procedure well. The patient was transported to the recovery area in stable condition where they were observed for an appropriate amount of time prior to discharge, without evidence of complication. The patient was instructed to avoid excessive activity for the next 48 hours, including climbing and frequent use of stairs. Showers only for 48 hours. They were instructed not to drive or operate heavy machinery for 24 hours. They are to monitor for severe headaches, fevers, chills, night sweats, erythema/swelling at the site or any other signs of infection, bleeding/bruising, bowel or bladder changes as well as new pain, weakness or numbness in the upper or lower extremity. Should they notice these changes, they are instructed to call our office immediately or report directly to the nearest Emergency Department if no answer or if after posted office hours. COMPLICATIONS: None COMMENTS: None CONTRAST WASTED: 28 mL Omnipaque 300. Complications No immediate complications Condition Stable Disposition Same day [facility] Billing Surgery - Charge Forward: Surgery Billing
--- NOTE | 2025-01-12 07:47 | WPDHPUPDATE1 ---
History and Physical Update Update Date/Time: 01/12/25 07:47 History and Physical has been reviewed, including an updated exam of the patient. There are NO changes in the patient's condition. Risks, benefits, and alternatives have been discussed and questions answered. Patient agrees to proceed with procedure.
[2025-01-12 07:59] VITALS: BP 113/71; PULSE 101; RESP 13; O2SAT 100
[2025-01-12] MEDS: LIDOCAINE 2% PF LOCAL INJ 5 ML VIAL 2 ML INFILTRATE (08:00)
[2025-01-12] MEDS: dexAMETHasone SOD PHOS INJ 10 MG/ML 1 ML VIAL IM (08:01)
[2025-01-12] MEDS: LIDOCAINE 1% PF INJ 5 ML VIAL INFILTRATE (08:02)
[2025-01-12 08:05] VITALS: BP 115/71; PULSE 86; RESP 14; O2SAT 100
[2025-01-12 08:08] VITALS: BP 106/87; PULSE 87; RESP 16; O2SAT 100
== END 2025-01-12 08:19 | disposition home or self-care (01) ==
PROVIDERS: PCP Family Medicine; Visit Provider Anesthesiology Pain Medicine
PROC: (CPT 64483; principal; 2025-01-12 07:50)
DX: M47.26 Other spondylosis with radiculopathy, lumbar region (principal)
CPT/HCPCS: 64483; 99199